=== PATIENT | male | born 1995 ===

== ENCOUNTER 2017-12-24 14:50 | Emergency (ER) | payer SELFPAY ==
--- NOTE | 2017-12-24 15:56 | UC ---
Throat Pain/Nasal Hu HPI - HPI Summary HPI Summary: Pt. is a 22 y.o male who presents to the eR for a fever and sore throat that started yesterday. He is a student at [employer]. He denies V/D, abd. pain, cough. Symptoms are mild in severity. Swallowing makes sxs worse. Nothing make sxs better. No past medical hx. Immunizations are up to date. - History of Current Complaint Chief Complaint: UCRespiratory Stated Complaint: FEVER,SORE THROAT Time Seen by Provider: 12/24/17 15:53 Hx Obtained From: Patient Pain Intensity: 8 - Allergies/Home Medications Allergies/Adverse Reactions: Allergies Allergy/AdvReac Type Severity Reaction Status Date / Time No Known Allergies Allergy Verified 12/24/17 15:54 Home Medications: Home Medications Ibuprofen TAB* [Advil TAB*] 600 mg PO Q6H PRN 12/24/17 [History Confirmed ] PMH/Surg Hx/FS Hx/Imm Hx Previously Healthy: Yes - Surgical History Surgical History: None - Family History Known Family History: Positive: Other - Noncontributory - Social History Occupation: Student Lives: Dormitory/Roommates Alcohol Use: Occasionally Substance Use Type: Marijuana Smoking Status (MU): Never Smoked Tobacco Review of Systems Constitutional: Fever, Chills Skin: Negative Eyes: Negative ENT: Sore Throat Respiratory: Negative Cardiovascular: Negative Gastrointestinal: Negative Musculoskeletal: Myalgia Is Patient Immunocompromised?: No All Other Systems Reviewed And Are Negative: Yes Physical Exam Triage Information Reviewed: Yes Appearance: Well-Appearing - Pt. sitting on bed in NAD. Vital Signs: Initial Vital Signs Temp 103.9 F 12/24/17 15:47 Pulse 123 12/24/17 15:47 Resp 16 12/24/17 15:47 BP 106/53 12/24/17 15:47 Pulse Ox 98 12/24/17 15:47 Vital Signs Reviewed: Yes Eyes: Positive: Conjunctiva Clear ENT: Positive: TMs normal, Other - Oral pharynx injected with bilateral tonsilar erythema, edema and excudates. Uvula is midline without deviation or edema. No drooling or muffled voice. Neck: Positive: Enlarged Nodes @ - Biateral cervical Respiratory Exam: Normal Respiratory: Positive: Lungs clear, Normal breath sounds Cardiovascular: Positive: RRR Abdomen Description: Positive: Nontender, Soft Musculoskeletal Exam: Normal Neurological Exam: Normal Skin Exam: Normal Throat Pain/Nasal Course/Dx - Course Course Of Treatment: Pt. presenting with fever and sore throat. Temp 103.9F, HR 123. However, nontoxic appearing. Tyenol ordered. Pt. drinking a bottle of water in room. Rapid strep is negative. Pending mono spot. Given fever, excudates and lymphadenopathy will treat with amoxicillin. Will call pt. tomorrow if mono spot is positive. On re-exam fever and HR are improving and pt. looks more comfortable. To f.u in [facility]. To increase fluids. Rotate between tylenol and motrin every 3 hours. To go to ER for uncontrollable fever, difficulty swallowing/breathing. Pt. understands and agrees with plan. - Differential Dx/Diagnosis Differential Diagnosis/HQI/PQRI: Zack's Angina, Otitis Media, Pharyngitis, Sinusitis, Tonsillitis, URI Provider Diagnoses: 1. Tonsillitis 2. fever Discharge - Sign-Out/Discharge Documenting (check all that apply): Patient Departure All imaging exams completed and their final reports reviewed: No Studies - Discharge Plan Condition: Good Disposition: HOME Prescriptions: Amoxicillin PO (*) [Amoxicillin 500 MG CAP*] 500 mg PO Q12H #20 cap Patient Education Materials: Tonsillitis (ED) Referrals: [facility] [Outside] Additional Instructions: Schedule a follow up appointment with [facility] Take amoxicillin as directed Will call tomorrow if mono spot is positive Can rotate between tylenol or motrin every 3 hours as directed for pain and fever Increase fluids Go to ER for uncontrollable fever, difficulty swallowing or breathing - Billing Disposition and Condition Condition: GOOD Disposition: Home
[2017-12-24] MEDS ORDERED: Acetaminophen TAB* 325 MG PO ONE (16:03)
[2017-12-24 17:07] VITALS: BP 112/53
--- NOTE | 2017-12-25 16:39 | UC ---
- Progress Note Progress Note: please notify pt of (+) MONO no sports x 2-3 weeks Discharge - Sign-Out/Discharge Documenting (check all that apply): Post-Discharge Follow Up All imaging exams completed and their final reports reviewed: No Studies - Discharge Plan Condition: Good Disposition: HOME Prescriptions: Amoxicillin PO (*) [Amoxicillin 500 MG CAP*] 500 mg PO Q12H #20 cap Patient Education Materials: Tonsillitis (ED) Referrals: [facility] [Outside] Additional Instructions: Schedule a follow up appointment with [facility] Take amoxicillin as directed Will call tomorrow if mono spot is positive Can rotate between tylenol or motrin every 3 hours as directed for pain and fever Increase fluids Go to ER for uncontrollable fever, difficulty swallowing or breathing - Billing Disposition and Condition Condition: GOOD Disposition: Home
== END 2017-12-24 17:10 | disposition home or self-care (01) ==
LOC: UCEAST 14:50
DX: J03.90 Acute tonsillitis, unspecified (principal); R50.9 Fever, unspecified
CPT/HCPCS: 36415; 86308; 87651; 99202; A9270-GY; G0463